=== PATIENT | male | born 2000 ===

== ENCOUNTER 2023-06-02 06:00 | Outpatient (RCR) | payer MEDICAID, SELFPAY | END 2023-07-02 23:59 | disposition home or self-care (01) | LOC: MPT 06:00 | PROVIDERS: Visit Provider Orthopaedic Surgery Foot and Ankle Surgery | DX: Z47.89 Encounter for other orthopedic aftercare (principal) | CPT/HCPCS: 97110; 97161 ==

== ENCOUNTER 2023-07-03 06:00 | Outpatient (RCR) | payer MEDICAID, SELFPAY | END 2023-08-02 23:59 | disposition home or self-care (01) | LOC: MPT 06:00 | PROVIDERS: Visit Provider Orthopaedic Surgery Foot and Ankle Surgery | DX: Z47.89 Encounter for other orthopedic aftercare (principal) | CPT/HCPCS: 97110; 97112; 97116; 97140 ==